=== PATIENT | male | born 1955 | race Caucasian/White ===

== ENCOUNTER 2021-05-03 13:10 | Emergency (ER) | payer MEDICARE, OTHER ==
[~2021-05-03] VITALS: Ht 177.8 cm; Wt 81.6 kg
[2021-05-03] MEDS ORDERED: NITROGLYCERIN 2% OINT 1 GM PKT TOP ONE (13:30)
[2021-05-03 13:44] LABS: BASOPHILS % 0.5 % (0.0-1.0); EOSINOPHILS # (AUTO) 0.2 (0.0-0.4); EOSINOPHILS % 2.5 % (0.0-6.0); HEMATOCRIT 38.7 % (38.2-49.6); HEMOGLOBIN 12.6 g/dL (14.0-18.0); LYMPHOCYTES # (AUTO) 1.4 (1.0-3.2); LYMPHOCYTES % 18.4 % (18.0-39.1); MEAN CORPUSCULAR HEMOGLOBIN 30.1 pg (28-32); MEAN CORPUSCULAR HGB CONC 32.6 g/dL (31-35); MEAN CORPUSCULAR VOLUME 92.6 fL (81-99); MONOCYTES # (AUTO) 0.5 (0.2-0.8); MONOCYTES % 7.2 % (4.4-11.3); NEUTROPHILS # (AUTO) 5.3 (2.1-6.9); NEUTROPHILS % 71.1 % (38.7-80.0); PLATELET COUNT 148 x10e3/uL (140-360); RED BLOOD COUNT 4.18 x10e6/uL (4.3-5.7); RED CELL DISTRIBUTION WIDTH 13.2 % (11.7-14.4)
[2021-05-03 14:05] LABS: INR 0.94; PARTIAL THROMBOPLASTIN TIME 29.7 seconds (23.8-35.5); PROTHROMBIN TIME 13.2 seconds (11.9-14.5)
[2021-05-03 14:07] LABS: ALBUMIN 3.6 g/dL (3.5-5.0); ANION GAP 15.1 mmol/L (8-16); CREATININE, SERUM 1.46 mg/dL (0.72-1.25); MAGNESIUM 1.9 MG/DL (1.3-2.1); POTASSIUM 4.1 mmol/L (3.5-5.1)
[2021-05-03 14:14] LABS: CREATINE KINASE MB 3.4 ng/mL (0-5.0)
[2021-05-03 15:07] LABS: CLARITY,URINE HAZY (CLEAR); COLOR,URINE YELLOW (YELLOW); KETONES,URINE NEGATIVE (NEGATIVE); LEUKOCYTE ESTERASE ,URINE NEGATIVE (NEGATIVE); NITRITE,URINE NEGATIVE (NEGATIVE); PROTEIN,URINE DIPSTICK 1+ (NEGATIVE); URINE UROBILINOGEN 0.2 mg/dL (0.2 - 1)
[2021-05-03 15:11] LABS: BACTERIA,URINE FEW /HPF; EPITHELIAL CELLS,URINE FEW /LPF; RBC,URINE 0-5 /HPF (0-5); WBC,URINE (MAN) 0-5 /HPF (0-5)
[2021-05-03] MEDS ORDERED: CLOPIDOGREL75 MG PO (16:22)
[2021-05-03] MEDS ORDERED: METFORMIN HCL500 M1 PO (16:22)
[2021-05-03] MEDS ORDERED: LEVOTHYROXINE88 MCG PO (16:22)
[2021-05-03] MEDS ORDERED: LISINOPRIL2.5 MG PO (16:22)
[2021-05-03] MEDS ORDERED: CARVEDILOL6.25 MG PO (16:22)
[2021-05-03] MEDS ORDERED: NOVOLOG100 UNIT/1 SC (16:22)
[2021-05-03] MEDS ORDERED: LANTUS 3ML100 UNITS/ SQ (16:22)
[2021-05-03] MEDS ORDERED: PANTOPRAZOLE SO40 MG PO (16:22)
[2021-05-03] MEDS ORDERED: INSULIN REGULAR, HUMAN 100 UNIT/1 ML IV ONE ×2 (16:30)
[2021-05-03] MEDS ORDERED: FUROSEMIDE INJ 10 MG/ML 4 ML VIAL IV ONE (17:15)
== END 2021-05-03 19:06 | disposition home or self-care (01) ==
LOC: ER 13:51
DX: I11.0 Hypertensive heart disease with heart failure (principal); I50.9 Heart failure, unspecified; E11.65 Type 2 diabetes mellitus with hyperglycemia; Z79.4 Long term (current) use of insulin; I25.10 Atherosclerotic heart disease of native coronary artery without angina pectoris; Z87.891 Personal history of nicotine dependence
CPT/HCPCS: 36415; 71045; 80053; 81001; 82550; 82553; 82948; 83735; 83880; 84484; 85025; 85610; 85730; 87086; 99284; J1817; J1940

== ENCOUNTER 2021-05-09 20:20 | Emergency (ER) | payer MEDICARE, OTHER ==
[~2021-05-09] VITALS: Ht 177.8 cm; Wt 88.0 kg
[~2021-05-09 20:20] MED LIST: CARVEDILOL6.25 MG PO; CLOPIDOGREL75 MG PO; LANTUS 3ML100 UNITS/ SQ; LEVOTHYROXINE88 MCG PO; LISINOPRIL2.5 MG PO; METFORMIN HCL500 M1 PO; NOVOLOG100 UNIT/1 SC; PANTOPRAZOLE SO40 MG PO
[2021-05-09] MEDS ORDERED: FAMOTIDINE 20 MG/2 ML VIAL IV STA (21:16)
[2021-05-09] MEDS ORDERED: MORPHINE SULFATE INJ 4 MG/ML INJ 1ML IV STA (21:16)
[2021-05-09] MEDS ORDERED: ONDANSETRON HCL INJ 2MG/ML 2ML 2 MG/ML VIAL IV STA (21:21)
[2021-05-09] MEDS ORDERED: SODIUM CHLORIDE 0.9% 500ML 500 ML IV ONE (21:30)
[2021-05-09] MEDS ORDERED: IOPAMIDOL 370 MG/ML 200 ML INFUS..BTL INJ ONE (21:36)
[2021-05-09] MEDS ORDERED: SODIUM CHLORIDE 0.9% 50ML 50 ML ONE (21:36)
[2021-05-09] MEDS ORDERED: SODIUM CHLORIDE 0.9% 500ML 500 ML ONE (21:38)
[2021-05-09] MEDS ORDERED: MORPHINE SULFATE INJ 4 MG/ML INJ 1ML ONE (21:38)
[2021-05-09] MEDS ORDERED: ONDANSETRON HCL INJ 2MG/ML 2ML 2 MG/ML VIAL ONE (21:38)
[2021-05-09] MEDS ORDERED: FAMOTIDINE 20 MG/2 ML VIAL IV ONE (21:38)
[2021-05-09 21:53] LABS: CREATINE KINASE MB 2.5 ng/mL (0-5.0)
[2021-05-10] MEDS ORDERED: DICYCLOMINE HCL 10 MG CAP ONE (00:21)
[2021-05-10] MEDS ORDERED: DICYCLOMINE HCL20 MG PO (00:24)
[2021-05-10] MEDS ORDERED: ONDANSETRON ODT4 MG PO (00:25)
[2021-05-10] MEDS ORDERED: CEPHALEXIN500 MG PO (00:26)
[2021-05-10] MEDS ORDERED: PROMETHAZINE HCL (IM) 25 MG/ML VIAL IM ONE (00:28)
[2021-05-10] MEDS ORDERED: PROMETHAZINE 12.5MG/ NACL 0.9% 12.5 MG/50 ML BAG IV ONE (00:30)
[2021-05-10] MEDS ORDERED: DICYCLOMINE HCL 10 MG CAP PO ONE (00:30)
== END 2021-05-10 00:54 | disposition home or self-care (01) ==
LOC: FSED 20:40
DX: R10.84 Generalized abdominal pain (principal); R31.29 Other microscopic hematuria; E11.621 Type 2 diabetes mellitus with foot ulcer; E11.65 Type 2 diabetes mellitus with hyperglycemia; L97.519 Non-pressure chronic ulcer of other part of right foot with unspecified severity; D64.9 Anemia, unspecified; I10 Essential (primary) hypertension; I50.9 Heart failure, unspecified; I25.10 Atherosclerotic heart disease of native coronary artery without angina pectoris; J90 Pleural effusion, not elsewhere classified; I73.9 Peripheral vascular disease, unspecified; Z95.5 Presence of coronary angioplasty implant and graft
CPT/HCPCS: 36415; 74177; 82550; 82553; 84484; 93005; 99284; J2270; J2405; J2550; J7040; Q9967

== ENCOUNTER 2021-10-22 20:57 | Emergency (ER) | payer MEDICARE, OTHER ==
[~2021-10-22] VITALS: Ht 177.8 cm; Wt 88.0 kg
[~2021-10-22 20:57] MED LIST changes: +CEPHALEXIN500 MG PO; +DICYCLOMINE HCL20 MG PO; +ONDANSETRON ODT4 MG PO
[2021-10-22] MEDS ORDERED: SILVER NITRATE SWABS ONE (21:57)
== END 2021-10-22 21:55 | disposition home or self-care (01) ==
LOC: FSED 21:05
DX: L76.22 Postprocedural hemorrhage of skin and subcutaneous tissue following other procedure (principal); Z79.02 Long term (current) use of antithrombotics/antiplatelets; S90.811A Abrasion, right foot, initial encounter; I73.9 Peripheral vascular disease, unspecified; Z89.431 Acquired absence of right foot; I11.0 Hypertensive heart disease with heart failure; I50.9 Heart failure, unspecified; E11.8 Type 2 diabetes mellitus with unspecified complications; I25.10 Atherosclerotic heart disease of native coronary artery without angina pectoris
CPT/HCPCS: 99283

== ENCOUNTER 2021-10-24 04:19 | Emergency (ER) | payer MEDICARE, OTHER ==
[~2021-10-24] VITALS: Ht 177.8 cm; Wt 88.0 kg
[2021-10-24] MEDS ORDERED: FENTANYL CITRATE/PF 100MCG/2 ML INJ IV ONE (04:45)
[2021-10-24] MEDS ORDERED: FUROSEMIDE INJ 10 MG/ML 4 ML VIAL IV ONE (04:45)
[2021-10-24 04:51] LABS: BASOPHILS # (AUTO) 0.1 (0.0-0.1); EOSINOPHILS # (AUTO) 0.3 (0.0-0.4); EOSINOPHILS % 4.5 % (0.0-6.0); HEMATOCRIT 38.8 % (38.2-49.6); HEMOGLOBIN 12.5 g/dL (14.0-18.0); LYMPHOCYTES # (AUTO) 1.8 (1.0-3.2); LYMPHOCYTES % 25.7 % (18.0-39.1); MEAN CORPUSCULAR HEMOGLOBIN 30.4 pg (28-32); MEAN CORPUSCULAR HGB CONC 32.2 g/dL (31-35); MEAN CORPUSCULAR VOLUME 94.4 fL (81-99); MONOCYTES # (AUTO) 0.5 (0.2-0.8); MONOCYTES % 7.4 % (4.4-11.3); NEUTROPHILS # (AUTO) 4.4 (2.1-6.9); NEUTROPHILS % 61.3 % (38.7-80.0); PLATELET COUNT 208 x10e3/uL (140-360); RED BLOOD COUNT 4.11 x10e6/uL (4.3-5.7); RED CELL DISTRIBUTION WIDTH 17.2 % (11.7-14.4)
[2021-10-24 05:02] LABS: INR 1.01; PROTHROMBIN TIME 14.1 seconds (11.9-14.5)
[2021-10-24 05:09] LABS: ALBUMIN 4.2 g/dL (3.5-5.0); ALBUMIN/GLOBULIN RATIO 1.1 (0.8-2.0); ANION GAP 16.5 mmol/L (8-16); CALCIUM 8.7 mg/dL (8.4-10.2); CREATININE, SERUM 1.5 mg/dL (0.72-1.25); POTASSIUM 3.5 mmol/L (3.5-5.1)
[2021-10-24 05:18] LABS: CLARITY,URINE CLOUDY (CLEAR); COLOR,URINE YELLOW (YELLOW); CREATINE KINASE MB 15.5 ng/mL (0-5.0); KETONES,URINE NEGATIVE (NEGATIVE); LEUKOCYTE ESTERASE ,URINE NEGATIVE (NEGATIVE); NITRITE,URINE NEGATIVE (NEGATIVE); PROTEIN,URINE DIPSTICK 2+ (NEGATIVE)
[2021-10-24 05:19] LABS: BACTERIA,URINE RARE /HPF; EPITHELIAL CELLS,URINE FEW /LPF; RBC,URINE 0-5 /HPF (0-5); URINE UROBILINOGEN 0.2 mg/dL (0.2 - 1); WBC,URINE (MAN) 21-50 /HPF (0-5)
[2021-10-24] MEDS ORDERED: SODIUM CHLORIDE 0.9% 50ML 50 ML ONE (05:36)
[2021-10-24] MEDS ORDERED: IOPAMIDOL 370 MG/ML 200 ML INFUS..BTL INJ ONE (05:36)
== END 2021-10-24 08:34 | disposition home or self-care (01) ==
LOC: ER 04:23
DX: R10.11 Right upper quadrant pain (principal); R10.13 Epigastric pain; I10 Essential (primary) hypertension; E11.9 Type 2 diabetes mellitus without complications; I50.9 Heart failure, unspecified; E03.9 Hypothyroidism, unspecified; I25.10 Atherosclerotic heart disease of native coronary artery without angina pectoris; I73.9 Peripheral vascular disease, unspecified; I25.2 Old myocardial infarction; Z95.5 Presence of coronary angioplasty implant and graft
CPT/HCPCS: 36415; 71045; 74177; 80053; 81001; 82550; 82553; 83690; 83880; 84484; 85025; 85610; 85730; 93005; 99284; J1940; J3010; Q9967

== ENCOUNTER 2022-02-25 14:49 | Outpatient (RCR) | payer MEDICARE, OTHER | END 2022-02-27 | LOC: WCC 14:49 | PROVIDERS: ATTEND Internal Medicine Infectious Disease | DX: L89.894 Pressure ulcer of other site, stage 4 (principal); E11.65 Type 2 diabetes mellitus with hyperglycemia; E11.621 Type 2 diabetes mellitus with foot ulcer; I21.3 ST elevation (STEMI) myocardial infarction of unspecified site; I73.9 Peripheral vascular disease, unspecified; I10 Essential (primary) hypertension; I25.10 Atherosclerotic heart disease of native coronary artery without angina pectoris; I50.9 Heart failure, unspecified; E03.9 Hypothyroidism, unspecified; R26.81 Unsteadiness on feet | CPT/HCPCS: 36415; 82948 ==

== ENCOUNTER 2022-03-03 15:50 | Outpatient (RCR) | payer MEDICARE, OTHER | END 2022-03-30 | LOC: WCC 15:50 | PROVIDERS: ATTEND Internal Medicine Infectious Disease | DX: L89.894 Pressure ulcer of other site, stage 4 (principal); E11.621 Type 2 diabetes mellitus with foot ulcer; E11.65 Type 2 diabetes mellitus with hyperglycemia; I73.9 Peripheral vascular disease, unspecified; I21.3 ST elevation (STEMI) myocardial infarction of unspecified site; I10 Essential (primary) hypertension; I25.10 Atherosclerotic heart disease of native coronary artery without angina pectoris; I50.9 Heart failure, unspecified; E03.9 Hypothyroidism, unspecified; R26.81 Unsteadiness on feet ==

== ENCOUNTER 2022-03-04 11:44 | Emergency (ER) | payer MEDICARE, OTHER ==
[~2022-03-04] VITALS: Ht 177.8 cm; Wt 88.0 kg
[2022-03-04] MEDS ORDERED: ONDANSETRON HCL INJ 2MG/ML 2ML 2 MG/ML VIAL IV STA (11:59)
[2022-03-04] MEDS ORDERED: SODIUM CHLORIDE 0.9% 500ML 500 ML IV ONE (12:00)
[2022-03-04 12:09] LABS: BASOPHILS # (AUTO) 0.1 (0.0-0.1); BASOPHILS % 0.7 % (0.0-1.0); EOSINOPHILS # (AUTO) 0.1 (0.0-0.4); HEMATOCRIT 30.2 % (38.2-49.6); HEMOGLOBIN 9.6 g/dL (14.0-18.0); MEAN CORPUSCULAR HEMOGLOBIN 28.1 pg (28-32); MEAN CORPUSCULAR HGB CONC 31.8 g/dL (31-35); MEAN CORPUSCULAR VOLUME 88.3 fL (81-99); MONOCYTES # (AUTO) 1.1 (0.2-0.8); MONOCYTES % 8.6 % (4.4-11.3); NEUTROPHILS # (AUTO) 10.1 (2.1-6.9); NEUTROPHILS % 81.2 % (38.7-80.0); PLATELET COUNT 293 x10e3/uL (140-360); RED BLOOD COUNT 3.42 x10e6/uL (4.3-5.7); RED CELL DISTRIBUTION WIDTH 13.2 % (11.7-14.4)
[2022-03-04 12:24] LABS: INR 1.21; PROTHROMBIN TIME 16.4 seconds (11.9-14.5)
[2022-03-04 12:25] LABS: PARTIAL THROMBOPLASTIN TIME 45.3 seconds (23.8-35.5)
[2022-03-04 12:38] LABS: CLARITY,URINE CLEAR (CLEAR); COLOR,URINE YELLOW (YELLOW); LEUKOCYTE ESTERASE ,URINE NEGATIVE (NEGATIVE)
[2022-03-04 12:38] LABS: ALBUMIN 2.9 g/dL (3.5-5.0); ALBUMIN/GLOBULIN RATIO 0.5 (0.8-2.0); ALKALINE PHOSPHATASE 100 IU/L (40-150); ANION GAP 16.8 mmol/L (8-16); BLOOD UREA NITROGEN 12 mg/dL (7-26); BUN/CREATININE RATIO 8 (6-25); CALCIUM 9.4 mg/dL (8.4-10.2); CARBON DIOXIDE 25 mmol/L (22-29); CHLORIDE 94 mmol/L (98-107); CREATINE KINASE 106 IU/L (30-200); CREATININE, SERUM 1.48 mg/dL (0.72-1.25); EST GLOMERULAR FILTRATION RATE 47 ML/MIN (60-); GLUCOSE 167 mg/dL (74-118); MAGNESIUM 1.7 MG/DL (1.3-2.1); POTASSIUM 3.8 mmol/L (3.5-5.1); SODIUM 132 mmol/L (136-145)
[2022-03-04 12:39] LABS: KETONES,URINE NEGATIVE (NEGATIVE); NITRITE,URINE NEGATIVE (NEGATIVE); PROTEIN,URINE DIPSTICK 2+ (NEGATIVE); URINE UROBILINOGEN 1 mg/dL (0.2 - 1)
[2022-03-04 12:39] LABS: ALANINE AMINOTRANSFERASE < 6 IU/L (0-55); LIPASE < 4 U/L (8-78)
[2022-03-04 12:42] LABS: BACTERIA,URINE MODERATE /HPF; EPITHELIAL CELLS,URINE FEW /LPF
[2022-03-04] MEDS ORDERED: IOPAMIDOL 370 MG/ML 100 ML INFUS..BTL INJ ONE (13:30)
[2022-03-04 14:20] VITALS: BP 130/88
== END 2022-03-04 14:48 | disposition home or self-care (01) ==
LOC: ER 11:50
DX: R10.13 Epigastric pain (principal); E11.65 Type 2 diabetes mellitus with hyperglycemia; I10 Essential (primary) hypertension; I25.10 Atherosclerotic heart disease of native coronary artery without angina pectoris; I50.9 Heart failure, unspecified; E03.9 Hypothyroidism, unspecified; I25.2 Old myocardial infarction; Z95.5 Presence of coronary angioplasty implant and graft
CPT/HCPCS: 36415; 74177; 80053; 81001; 82550; 82553; 83690; 83735; 84484; 85025; 85610; 85730; 87086; 93005; 99284; C9113; J2405; J7040; Q9967

== ENCOUNTER 2022-08-14 01:48 | Observation (INO) | payer MEDICARE, OTHER ==
[2022-08-14] VITALS (12 sets, daily range): BP systolic 125–156; BP diastolic 64–85
[~2022-08-14] VITALS: Ht 177.8 cm; Wt 87.1 kg
[2022-08-14] MEDS ORDERED: SODIUM CHLORIDE FLUSH 10 ML SYR IV PRN (02:00)
[2022-08-14] MEDS ORDERED: ASPIRIN 81 MG CHEW TAB PO ONE ×2 (02:00→04:30)
[2022-08-14 02:29] LABS: BASOPHILS # (AUTO) 0.1 (0.0-0.1); BASOPHILS % 0.8 % (0.0-1.0); EOSINOPHILS # (AUTO) 0.3 (0.0-0.4); HEMATOCRIT 35.2 % (38.2-49.6); HEMOGLOBIN 10.6 g/dL (14.0-18.0); LYMPHOCYTES # (AUTO) 1.4 (1.0-3.2); LYMPHOCYTES % 16.3 % (18.0-39.1); MEAN CORPUSCULAR HEMOGLOBIN 29.2 pg (28-32); MEAN CORPUSCULAR HGB CONC 30.1 g/dL (31-35); MONOCYTES # (AUTO) 0.6 (0.2-0.8); MONOCYTES % 6.8 % (4.4-11.3); NEUTROPHILS # (AUTO) 6.1 (2.1-6.9); PLATELET COUNT 185 x10e3/uL (140-360); RED BLOOD COUNT 3.63 x10e6/uL (4.3-5.7); RED CELL DISTRIBUTION WIDTH 13.2 % (11.7-14.4)
[2022-08-14] MEDS ORDERED: FUROSEMIDE INJ 10 MG/ML 4 ML VIAL IV ONE (02:30)
[2022-08-14 02:53] LABS: ALBUMIN 3.5 g/dL (3.5-5.0); ALBUMIN/GLOBULIN RATIO 0.9 (0.8-2.0); CALCIUM 9.5 mg/dL (8.4-10.2); CREATININE, SERUM 1.44 mg/dL (0.72-1.25)
[2022-08-14] MEDS ORDERED: SODIUM CHLORIDE FLUSH 10 ML SYR INJ PRN (04:30)
[2022-08-14] MEDS ORDERED: ONDANSETRON HCL INJ 2MG/ML 2ML 2 MG/ML VIAL IV PRN (04:30)
[2022-08-14] MEDS: ASPIRIN 81 MG ENTERIC COATED PO SCH (08:31)
[2022-08-14 09:40] LABS: CREATINE KINASE MB 3.8 ng/mL (0-5.0)
[2022-08-14] MEDS ORDERED: DEXTROSE 50% SYRINGE 50 ML IV PRN (13:15)
[2022-08-14] MEDS ORDERED: HYDRALAZINE HCL 20 MG/ML VIAL IV PRN (13:45)
[2022-08-14] MEDS ORDERED: ACETAMINOPHEN 325 MG TAB PO PRN (13:45)
[2022-08-14] MEDS ORDERED: KLOR-CON M2020 MEQ PO (15:54)
[2022-08-14] MEDS ORDERED: LEVOTHYROXINE112 MCG PO (15:54)
[2022-08-14] MEDS ORDERED: ENTRESTO 24 MG1 EACH PO (15:54)
[2022-08-14] MEDS ORDERED: NOVOLIN N100 UNIT/4 SUBD (15:54)
[2022-08-14] MEDS ORDERED: METOPROLOL SUCC25 MG PO (15:54)
[2022-08-14] MEDS ORDERED: GABAPENTIN300 MG PO (15:54)
[2022-08-14] MEDS ORDERED: QUETIAPINE FUMA25 MG PO (15:54)
[2022-08-14] MEDS ORDERED: TAMSULOSIN PO (15:54)
[2022-08-14] MEDS ORDERED: AMLODIPINE BESYL5 MG PO (15:54)
[2022-08-14] MEDS ORDERED: HYDRALAZINE HCL25 MG PO (15:54)
[2022-08-14] MEDS ORDERED: FUROSEMIDE40 MG PO (15:54)
[2022-08-14] MEDS ORDERED: QUETIAPINE FUMARATE 25 MG TAB PO SCH (17:15)
[2022-08-14 17:35] LABS: CREATINE KINASE MB 3.1 ng/mL (0-5.0)
[2022-08-14] MEDS: FUROSEMIDE INJ 10 MG/ML 4 ML VIAL IV SCH (17:57)
[2022-08-14] MEDS: CARVEDILOL 12.5 MG TAB PO SCH (17:58)
[2022-08-14] MEDS: GABAPENTIN 300 MG CAP PO SCH (17:59)
[2022-08-14] MEDS: INSULIN LISPRO 100 UNIT/1 ML 3ML VIAL SQ SCH (18:05)
[2022-08-14] MEDS: VALSARTAN/SACUBITRIL 24MG/26MG 1 EA TAB PO SCH (18:11)
[2022-08-14] MEDS ORDERED: TAMSULOSIN HCL 0.4 MG CAP PO SCH ×2 (21:00)
[2022-08-14] MEDS: HYDRALAZINE HCL 25 MG TAB PO SCH (21:23)
[2022-08-15] VITALS (8 sets, daily range): BP systolic 120–145; BP diastolic 64–79
[2022-08-15] MEDS ORDERED: LEVOTHYROXINE SODIUM 88 MCG TAB PO SCH (06:00)
[2022-08-15] MEDS ORDERED: LEVOTHYROXINE SODIUM 112 MCG TAB PO SCH (06:00)
[2022-08-15 06:14] LABS: BASOPHILS % 0.6 % (0.0-1.0); EOSINOPHILS # (AUTO) 0.3 (0.0-0.4); EOSINOPHILS % 3.8 % (0.0-6.0); HEMATOCRIT 31.7 % (38.2-49.6); HEMOGLOBIN 10.2 g/dL (14.0-18.0); LYMPHOCYTES # (AUTO) 1.4 (1.0-3.2); MEAN CORPUSCULAR HEMOGLOBIN 29.1 pg (28-32); MEAN CORPUSCULAR HGB CONC 32.2 g/dL (31-35); MEAN CORPUSCULAR VOLUME 90.6 fL (81-99); MONOCYTES # (AUTO) 0.5 (0.2-0.8); NEUTROPHILS # (AUTO) 4.4 (2.1-6.9); NEUTROPHILS % 66.3 % (38.7-80.0); PLATELET COUNT 176 x10e3/uL (140-360); RED CELL DISTRIBUTION WIDTH 13.4 % (11.7-14.4)
[2022-08-15 06:37] LABS: ALBUMIN/GLOBULIN RATIO 0.9 (0.8-2.0); ANION GAP 16.2 mmol/L (8-16); CALCIUM 8.7 mg/dL (8.4-10.2); CREATININE, SERUM 1.31 mg/dL (0.72-1.25); POTASSIUM 3.2 mmol/L (3.5-5.1)
[2022-08-15 06:45] LABS: CREATINE KINASE MB 2.2 ng/mL (0-5.0)
[2022-08-15] MEDS: GABAPENTIN 300 MG CAP PO SCH ×2 (08:37→15:46)
[2022-08-15] MEDS: HYDRALAZINE HCL 25 MG TAB PO SCH ×2 (08:37→14:30)
[2022-08-15] MEDS: VALSARTAN/SACUBITRIL 24MG/26MG 1 EA TAB PO SCH (08:42)
[2022-08-15] MEDS: CARVEDILOL 12.5 MG TAB PO SCH (08:42)
[2022-08-15] MEDS: ASPIRIN 81 MG ENTERIC COATED PO SCH (08:43)
[2022-08-15] MEDS: FUROSEMIDE INJ 10 MG/ML 4 ML VIAL IV SCH (08:43)
[2022-08-15] MEDS: INSULIN LISPRO 100 UNIT/1 ML 3ML VIAL SQ SCH ×2 (08:57→13:12)
[2022-08-15] MEDS ORDERED: PANTOPRAZOLE SOD 40 MG TABEC PO SCH (09:00)
[2022-08-15] MEDS ORDERED: LISINOPRIL 2.5 MG TAB PO SCH (09:00)
[2022-08-15] MEDS ORDERED: CLOPIDOGREL BISULFATE 75 MG TAB PO SCH (09:00)
[2022-08-15] MEDS ORDERED: POTASSIUM CHLORIDE 10MEQ EA PO NR (14:00)
[2022-08-15 15:15] LABS: CREATINE KINASE MB 2.5 ng/mL (0-5.0)
== END 2022-08-15 16:20 | disposition home or self-care (01) ==
LOC: ER 01:55 → ERHOLD 04:23 → MED/SURG2 05:53
PROVIDERS: ADMIT Internal Medicine; ATTEND Internal Medicine
DX: I11.0 Hypertensive heart disease with heart failure (principal); I50.9 Heart failure, unspecified; N17.9 Acute kidney failure, unspecified; E78.5 Hyperlipidemia, unspecified; I25.10 Atherosclerotic heart disease of native coronary artery without angina pectoris; I25.2 Old myocardial infarction; R09.02 Hypoxemia; E11.9 Type 2 diabetes mellitus without complications; E89.0 Postprocedural hypothyroidism; Z82.49 Family history of ischemic heart disease and other diseases of the circulatory system; Z79.4 Long term (current) use of insulin; Z88.8 Allergy status to other drugs, medicaments and biological substances; Z95.5 Presence of coronary angioplasty implant and graft; Z95.820 Peripheral vascular angioplasty status with implants and grafts; Z89.411 Acquired absence of right great toe; Z20.822 Contact with and (suspected) exposure to COVID-19
CPT/HCPCS: 36415 ×2; 71045 ×2; 80053 ×2; 82550 ×2; 82553 ×2; 82948 ×2; 83880; 84484 ×2; 85025 ×2; 93005; 93306; 94799 ×2; 99284; G0378 ×2; J1940 ×2; S0164; U0002; J0360; J2405

== ENCOUNTER 2022-12-05 09:13 | Emergency (ER) | payer MEDICARE ==
[~2022-12-05] VITALS: Ht 177.8 cm; Wt 87.1 kg
[~2022-12-05 09:13] MED LIST changes: +AMLODIPINE BESYL5 MG PO; +CEFDINIR300 MG PO; +ENTRESTO 24 MG1 EACH PO; +FUROSEMIDE40 MG PO; +GABAPENTIN300 MG PO; +HYDRALAZINE HCL25 MG PO; +KLOR-CON M2020 MEQ PO; +LEVOTHYROXINE112 MCG PO; +METOPROLOL SUCC25 MG PO; +NOVOLIN N100 UNIT/4 SUBD; +QUETIAPINE FUMA25 MG PO; +TAMSULOSIN PO
[2022-12-05] MEDS ORDERED: ONDANSETRON HCL INJ 2MG/ML 2ML 2 MG/ML VIAL IV STA (09:32)
[2022-12-05] MEDS ORDERED: SODIUM CHLORIDE 0.9% 1000ML 1,000 ML IV ONE (09:45)
[2022-12-05] MEDS ORDERED: Morphine 4mg INJECTION 4 MG/ML INJ IV ONE (09:45)
[2022-12-05 10:10] LABS: BASOPHILS % 0.6 % (0.0-1.0); EOSINOPHILS # (AUTO) 0.2 (0.0-0.4); EOSINOPHILS % 3.7 % (0.0-6.0); HEMATOCRIT 37.5 % (38.2-49.6); HEMOGLOBIN 11.1 g/dL (14.0-18.0); LYMPHOCYTES % 15.7 % (18.0-39.1); MEAN CORPUSCULAR HEMOGLOBIN 28.9 pg (28-32); MEAN CORPUSCULAR HGB CONC 29.6 g/dL (31-35); MEAN CORPUSCULAR VOLUME 97.7 fL (81-99); MONOCYTES # (AUTO) 0.4 (0.2-0.8); MONOCYTES % 6.4 % (4.4-11.3); NEUTROPHILS # (AUTO) 4.8 (2.1-6.9); NEUTROPHILS % 73.4 % (38.7-80.0); PLATELET COUNT 124 x10e3/uL (140-360); RED BLOOD COUNT 3.84 x10e6/uL (4.3-5.7); RED CELL DISTRIBUTION WIDTH 13.9 % (11.7-14.4)
[2022-12-05 10:19] LABS: CLARITY,URINE CLEAR (CLEAR); COLOR,URINE YELLOW (YELLOW); KETONES,URINE TRACE (NEGATIVE); LEUKOCYTE ESTERASE ,URINE NEGATIVE (NEGATIVE); NITRITE,URINE NEGATIVE (NEGATIVE); PROTEIN,URINE DIPSTICK >=300 (NEGATIVE); URINE UROBILINOGEN 0.2 mg/dL (0.2 - 1)
[2022-12-05 10:25] LABS: BACTERIA,URINE FEW /HPF; WBC,URINE (MAN) 0-5 /HPF (0-5)
[2022-12-05 10:26] LABS: EPITHELIAL CELLS,URINE FEW /LPF
[2022-12-05 10:30] LABS: ALBUMIN 3.8 g/dL (3.5-5.0); ALBUMIN/GLOBULIN RATIO 1.1 (0.8-2.0); ANION GAP 16.2 mmol/L (8-16); CREATININE, SERUM 1.53 mg/dL (0.72-1.25); POTASSIUM 4.2 mmol/L (3.5-5.1)
[2022-12-05] MEDS ORDERED: IOPAMIDOL 370 MG/ML 100 ML INFUS..BTL INJ ONE (11:00)
[2022-12-05] MEDS ORDERED: DICYCLOMINE HCL20 MG PO (12:57)
== END 2022-12-05 13:25 | disposition home or self-care (01) ==
LOC: ER 09:20
DX: R19.7 Diarrhea, unspecified (principal); R11.2 Nausea with vomiting, unspecified; E11.65 Type 2 diabetes mellitus with hyperglycemia; I10 Essential (primary) hypertension; I50.9 Heart failure, unspecified; I73.9 Peripheral vascular disease, unspecified; Z20.822 Contact with and (suspected) exposure to COVID-19
CPT/HCPCS: 36415; 74177; 80053; 81001; 83690; 85025; 99284; J2270; J2405; J7030; Q9967; U0002

== ENCOUNTER 2022-12-11 18:18 | Emergency (ER) | payer MEDICARE, OTHER ==
[~2022-12-11] VITALS: Ht 177.8 cm; Wt 87.1 kg
[2022-12-11] MEDS ORDERED: AMOX TR-K CLV1 EAC2 PO (20:19)
== END 2022-12-11 20:24 | disposition home or self-care (01) ==
LOC: ER 18:20
DX: S90.811A Abrasion, right foot, initial encounter (principal); W55.03XA Scratched by cat, initial encounter; Y92.89 Other specified places as the place of occurrence of the external cause; I10 Essential (primary) hypertension; E11.9 Type 2 diabetes mellitus without complications; I50.9 Heart failure, unspecified; I73.9 Peripheral vascular disease, unspecified
CPT/HCPCS: 99282

== ENCOUNTER 2023-01-04 09:43 | Emergency (ER) | payer MEDICARE ==
[~2023-01-04] VITALS: Ht 177.8 cm; Wt 87.1 kg
[~2023-01-04 09:43] MED LIST changes: +AMOX TR-K CLV1 EAC2 PO
[2023-01-04 10:10] LABS: BASOPHILS # (AUTO) 0.1 (0.0-0.1); BASOPHILS % 0.8 % (0.0-1.0); EOSINOPHILS # (AUTO) 0.1 (0.0-0.4); EOSINOPHILS % 2.2 % (0.0-6.0); HEMOGLOBIN 10.9 g/dL (14.0-18.0); LYMPHOCYTES # (AUTO) 0.8 (1.0-3.2); LYMPHOCYTES % 12.8 % (18.0-39.1); MEAN CORPUSCULAR HEMOGLOBIN 28.8 pg (28-32); MEAN CORPUSCULAR HGB CONC 31.1 g/dL (31-35); MEAN CORPUSCULAR VOLUME 92.6 fL (81-99); MONOCYTES # (AUTO) 0.3 (0.2-0.8); MONOCYTES % 5.1 % (4.4-11.3); NEUTROPHILS # (AUTO) 5.1 (2.1-6.9); NEUTROPHILS % 78.9 % (38.7-80.0); PLATELET COUNT 126 x10e3/uL (140-360); RED BLOOD COUNT 3.78 x10e6/uL (4.3-5.7); RED CELL DISTRIBUTION WIDTH 14.9 % (11.7-14.4)
[2023-01-04] MEDS ORDERED: ONDANSETRON HCL INJ 2MG/ML 2ML 2 MG/ML VIAL IV STA (10:15)
[2023-01-04] MEDS ORDERED: DONNATAL/LIDOCAINE/MAALOX 30 ML SUSP PO ONE (10:15)
[2023-01-04] MEDS ORDERED: LACTATED RINGER'S 1,000 ML INJ ONE (10:15)
[2023-01-04 10:26] LABS: ALBUMIN 4.1 g/dL (3.5-5.0); ALBUMIN/GLOBULIN RATIO 1.2 (0.8-2.0); ANION GAP 15.6 mmol/L (8-16); CALCIUM 9.3 mg/dL (8.4-10.2); CREATININE, SERUM 1.64 mg/dL (0.72-1.25); POTASSIUM 3.6 mmol/L (3.5-5.1)
[2023-01-04 11:00] LABS: AMPHETAMINES SCREEN,URINE NEGATIVE (NEGATIVE); BENZODIAZEPINES SCREEN,URINE NEGATIVE (NEGATIVE); CLARITY,URINE CLEAR (CLEAR); COLOR,URINE YELLOW (YELLOW); KETONES,URINE NEGATIVE (NEGATIVE); LEUKOCYTE ESTERASE ,URINE NEGATIVE (NEGATIVE); NITRITE,URINE NEGATIVE (NEGATIVE); PHENCYCLIDINE SCREEN,URINE NEGATIVE (NEGATIVE); PROTEIN,URINE DIPSTICK >=300 (NEGATIVE); URINE UROBILINOGEN 0.2 mg/dL (0.2 - 1)
[2023-01-04] MEDS ORDERED: BELLADONNA ALK/PHENOBARBITAL 5 ML UDC ONE (11:01)
[2023-01-04] MEDS ORDERED: LIDOCAINE VISC 2% SOLN 15 ML UDC ONE (11:01)
[2023-01-04] MEDS ORDERED: MAGNESIUM/ALUMINUM/SIMETHICONE 30 ML UDC ONE (11:01)
[2023-01-04 11:06] LABS: RBC,URINE 21-50 /HPF (0-5); WBC,URINE (MAN) 0-5 /HPF (0-5)
[2023-01-04 11:07] LABS: BACTERIA,URINE RARE /HPF; EPITHELIAL CELLS,URINE RARE /LPF
[2023-01-04] MEDS ORDERED: OMEPRAZOLE40 MG PO (11:37)
[2023-01-04 12:56] VITALS: BP 167/93
== END 2023-01-04 12:59 | disposition home or self-care (01) ==
LOC: ER 09:47
DX: R10.33 Periumbilical pain (principal); I10 Essential (primary) hypertension; E11.65 Type 2 diabetes mellitus with hyperglycemia; I50.9 Heart failure, unspecified; I73.9 Peripheral vascular disease, unspecified
CPT/HCPCS: 36415; 74177; 80053; 80307; 81001; 83690; 84484; 85025; 93005; 99284; C9113; J2405; J7121

== ENCOUNTER 2024-02-26 00:58 | Emergency (ER) | payer MEDICARE ==
[~2024-02-26] VITALS: Ht 177.8 cm; Wt 87.1 kg
[~2024-02-26 00:58] MED LIST changes: +AZITHROMYCIN250 MG PO; +OMEPRAZOLE40 MG PO
[2024-02-26] MEDS ORDERED: SODIUM CHLORIDE 0.9% 1000ML 1,000 ML IV ONE (01:45)
[2024-02-26] MEDS: ONDANSETRON HCL INJ 2MG/ML 2ML 2 MG/ML VIAL IV STA (01:46)
[2024-02-26] MEDS: DICYCLOMINE HCL 20 MG/2 ML VIAL IM ONE (01:46)
[2024-02-26 01:50] LABS: BASOPHILS # (AUTO) 0.1 (0.0-0.1); BASOPHILS % 0.7 % (0.0-1.0); EOSINOPHILS # (AUTO) 0.2 (0.0-0.4); EOSINOPHILS % 2.4 % (0.0-6.0); HEMATOCRIT 40.7 % (38.2-49.6); HEMOGLOBIN 13.4 g/dL (14.0-18.0); LYMPHOCYTES # (AUTO) 1.1 (1.0-3.2); LYMPHOCYTES % 14.1 % (18.0-39.1); MEAN CORPUSCULAR HGB CONC 32.9 g/dL (31-35); MEAN CORPUSCULAR VOLUME 88.1 fL (81-99); MONOCYTES # (AUTO) 0.4 (0.2-0.8); MONOCYTES % 5.4 % (4.4-11.3); NEUTROPHILS # (AUTO) 5.9 (2.1-6.9); NEUTROPHILS % 77.3 % (38.7-80.0); PLATELET COUNT 150 x10e3/uL (140-360); RED BLOOD COUNT 4.62 x10e6/uL (4.3-5.7); RED CELL DISTRIBUTION WIDTH 14.2 % (11.7-14.4); WHITE BLOOD COUNT 7.59 x10e3/uL (4.8-10.8)
[2024-02-26 02:11] LABS: ALBUMIN/GLOBULIN RATIO 1.1 (0.8-2.0); ANION GAP 16.6 mmol/L (8-16); BILIRUBIN,TOTAL 0.8 mg/dL (0.2-1.2); CALCIUM 9.1 mg/dL (8.4-10.2); CREATININE, SERUM 1.82 mg/dL (0.72-1.25); POTASSIUM 3.6 mmol/L (3.5-5.1); TOTAL PROTEIN 7.8 g/dL (6.5-8.1)
[2024-02-26 02:31] LABS: TROPONIN I 0.019 ng/mL (0-0.300)
[2024-02-26 02:55] VITALS: BP 165/90; PULSE 63; RESP 21; TEMP 98.2; O2SAT 96
[2024-02-26] MEDS ORDERED: DICYCLOMINE HCL20 MG PO (03:02)
[2024-02-26] MEDS ORDERED: ONDANSETRON ODT4 MG SL (03:02)
[2024-02-26] MEDS ORDERED: PANTOPRAZOLE SO40 MG PO (03:02)
== END 2024-02-26 03:14 | disposition home or self-care (01) ==
LOC: ER 01:03
DX: R10.13 Epigastric pain (principal); R11.0 Nausea; I10 Essential (primary) hypertension; E11.9 Type 2 diabetes mellitus without complications; I50.9 Heart failure, unspecified; I25.10 Atherosclerotic heart disease of native coronary artery without angina pectoris; E78.5 Hyperlipidemia, unspecified; I73.9 Peripheral vascular disease, unspecified; R94.31 Abnormal electrocardiogram [ECG] [EKG]; I25.2 Old myocardial infarction
CPT/HCPCS: 36415; 80053; 83690; 84484; 85025; 93005; 99283; C9113; J0500; J2405

== ENCOUNTER → 2024-04-05 | Day surgery (SDC) | payer MEDICARE ==
[~2024-04-05] MED LIST changes: +ASPIRIN81 MG PO; +FENTANYL CITRATE/PF 100MCG/2 ML INJ ONE; +FEROSUL325 MG PO; +FIBER GUMMIES2 GM; +FLOMAX0.4 MG PO; +FOLIC ACID0.4 MG PO; +ISOSORBIDE MONO30 MG PO; +LEVSIN-SL0.125 MG SL; +LIDOCAINE HCL 2% LOCAL INJ 5 ML SDV VIAL INJ ONE; +LISINOPRIL10 MG PO; +ONDANSETRON ODT4 MG SL; +PROPOFOL IV EMULSION 10 MG/ML 50 ML VIAL IV ONE; +SYNTHROID125 MCG PO; +TOUJEO MAX300 UNIT/1; +ZETIA10 MG PO; +[UNRECOGNIZED DRUG - OTHER] PO
[2024-04-05] MEDS: LACTATED RINGER'S 1,000 ML ONE (13:22)
[2024-04-05 15:13] VITALS: TEMP 97.1
[2024-04-05 15:40] VITALS: BP 156/52; PULSE 66; RESP 16; O2SAT 99
== END | disposition home or self-care (01) ==
LOC: OR 13:13
PROVIDERS: ATTEND Internal Medicine Gastroenterology
DX: K29.50 Unspecified chronic gastritis without bleeding (principal); Z86.010 Personal history of colon polyps; K21.00 Gastro-esophageal reflux disease with esophagitis, without bleeding; K22.70 Barrett's esophagus without dysplasia; K59.00 Constipation, unspecified; K44.9 Diaphragmatic hernia without obstruction or gangrene; K64.8 Other hemorrhoids; Z71.3 Dietary counseling and surveillance; I25.10 Atherosclerotic heart disease of native coronary artery without angina pectoris; I11.0 Hypertensive heart disease with heart failure; I50.9 Heart failure, unspecified; Z71.89 Other specified counseling; E78.5 Hyperlipidemia, unspecified; I25.2 Old myocardial infarction; E11.9 Type 2 diabetes mellitus without complications; E03.9 Hypothyroidism, unspecified; F17.210 Nicotine dependence, cigarettes, uncomplicated; Z88.8 Allergy status to other drugs, medicaments and biological substances; Z79.02 Long term (current) use of antithrombotics/antiplatelets; Z79.82 Long term (current) use of aspirin; Z79.4 Long term (current) use of insulin; Z79.899 Other long term (current) drug therapy; Z68.28 Body mass index [BMI] 28.0-28.9, adult; Z95.5 Presence of coronary angioplasty implant and graft
CPT/HCPCS: 36415; 43239; 45378; 82948; C9113; J2001; J2704; J3010; J7121

== ENCOUNTER 2024-05-20 07:04 | Emergency (ER) | payer MEDICARE ==
[~2024-05-20] VITALS: Ht 177.8 cm; Wt 84.8 kg
[~2024-05-20 07:04] MED LIST changes: -FENTANYL CITRATE/PF 100MCG/2 ML INJ ONE; -LEVSIN-SL0.125 MG SL; -LIDOCAINE HCL 2% LOCAL INJ 5 ML SDV VIAL INJ ONE; -PROPOFOL IV EMULSION 10 MG/ML 50 ML VIAL IV ONE
[2024-05-20 07:11] VITALS: TEMP 97.6
[2024-05-20 08:01] LABS: BASOPHILS # (AUTO) 0.1 (0.0-0.1); BASOPHILS % 0.6 % (0.0-1.0); EOSINOPHILS # (AUTO) 0.4 (0.0-0.4); EOSINOPHILS % 4.3 % (0.0-6.0); HEMATOCRIT 42.5 % (38.2-49.6); HEMOGLOBIN 13.8 g/dL (14.0-18.0); LYMPHOCYTES # (AUTO) 1.2 (1.0-3.2); MEAN CORPUSCULAR HEMOGLOBIN 30.2 pg (28-32); MEAN CORPUSCULAR HGB CONC 32.5 g/dL (31-35); MONOCYTES # (AUTO) 0.7 (0.2-0.8); MONOCYTES % 6.9 % (4.4-11.3); PLATELET COUNT 153 x10e3/uL (140-360); RED BLOOD COUNT 4.57 x10e6/uL (4.3-5.7); RED CELL DISTRIBUTION WIDTH 13.2 % (11.7-14.4); WHITE BLOOD COUNT 9.36 x10e3/uL (4.8-10.8)
[2024-05-20 08:03] LABS: INR 0.97; PROTHROMBIN TIME 13.6 seconds (11.9-14.5)
[2024-05-20 08:04] LABS: PARTIAL THROMBOPLASTIN TIME 31.9 seconds (23.8-35.5)
[2024-05-20 08:12] LABS: ALBUMIN 4.3 g/dL (3.5-5.0); ALBUMIN/GLOBULIN RATIO 1.1 (0.8-2.0); BILIRUBIN,TOTAL 1.2 mg/dL (0.2-1.2); CALCIUM 9.6 mg/dL (8.4-10.2); CREATININE, SERUM 1.85 mg/dL (0.72-1.25); POTASSIUM 3.9 mmol/L (3.5-5.1); TOTAL PROTEIN 8.2 g/dL (6.5-8.1)
[2024-05-20] MEDS: Morphine 4mg INJECTION 4 MG/ML INJ IV STA (08:15)
[2024-05-20] MEDS: ONDANSETRON HCL INJ 2MG/ML 2ML 2 MG/ML VIAL IV STA (08:16)
[2024-05-20] MEDS: SODIUM CHLORIDE 0.9% 1000ML 1,000 ML IV STA (08:16)
[2024-05-20 08:17] VITALS: BP 177/101
[2024-05-20 08:17] LABS: TROPONIN I 0.024 ng/mL (0-0.300)
[2024-05-20] MEDS: HYDRALAZINE HCL 20 MG/ML VIAL IV STA (08:17)
[2024-05-20] MEDS ORDERED: IOPAMIDOL 370 MG/ML 100 ML INFUS..BTL INJ ONE (08:25)
[2024-05-20 08:30] LABS: ANION GAP 17.7 mmol/L (8-16)
[2024-05-20 11:00] VITALS: PULSE 79; RESP 16; O2SAT 97
[2024-05-20] MEDS ORDERED: ONDANSETRON ODT4 MG PO (11:11)
[2024-05-20] MEDS ORDERED: LEVSIN-SL0.125 MG SL (11:11)
== END 2024-05-20 11:50 | disposition home or self-care (01) ==
LOC: ER 07:25
DX: R10.10 Upper abdominal pain, unspecified (principal); I10 Essential (primary) hypertension; E11.9 Type 2 diabetes mellitus without complications; E78.5 Hyperlipidemia, unspecified; I50.9 Heart failure, unspecified; E03.9 Hypothyroidism, unspecified; I25.10 Atherosclerotic heart disease of native coronary artery without angina pectoris; R94.31 Abnormal electrocardiogram [ECG] [EKG]; Z11.52 Encounter for screening for COVID-19; I25.2 Old myocardial infarction
CPT/HCPCS: 36415; 71045; 74177; 76705; 80053; 82550; 83690; 83735; 83880; 84484; 85025; 85610; 85730; 93005; 99284; J0360; J2270; J2405; J2470; J7030; Q9967; U0002

== ENCOUNTER 2024-06-12 16:10 | Emergency (ER) | payer MEDICARE ==
[~2024-06-12] VITALS: Ht 177.8 cm; Wt 84.8 kg
[~2024-06-12 16:10] MED LIST changes: +LEVSIN-SL0.125 MG SL
[2024-06-12 16:36] VITALS: PULSE 74; RESP 17; TEMP 99.1; O2SAT 98
[2024-06-12] MEDS ORDERED: LEVOFLOXACIN250 MG PO (16:47)
[2024-06-12] MEDS ORDERED: CLINDAMYCIN HC150 MG PO (16:47)
== END 2024-06-12 16:57 | disposition home or self-care (01) ==
LOC: ER 16:28
DX: R50.9 Fever, unspecified (principal); L03.115 Cellulitis of right lower limb; I10 Essential (primary) hypertension; E11.9 Type 2 diabetes mellitus without complications; I50.9 Heart failure, unspecified; E78.5 Hyperlipidemia, unspecified; E03.9 Hypothyroidism, unspecified; I25.2 Old myocardial infarction
CPT/HCPCS: 99282

== ENCOUNTER 2024-06-18 15:05 | Inpatient (IN) | payer MEDICARE ==
[~2024-06-18] VITALS: Ht 177.8 cm; Wt 84.8 kg
[~2024-06-18 15:05] MED LIST changes: +CLINDAMYCIN HC150 MG PO; +LEVOFLOXACIN250 MG PO
[2024-06-18 15:42] LABS: BASOPHILS # (AUTO) 0.1 (0.0-0.1); BASOPHILS % 0.8 % (0.0-1.0); EOSINOPHILS # (AUTO) 0.3 (0.0-0.4); EOSINOPHILS % 4.2 % (0.0-6.0); HEMATOCRIT 38.6 % (38.2-49.6); HEMOGLOBIN 12.4 g/dL (14.0-18.0); LYMPHOCYTES # (AUTO) 0.9 (1.0-3.2); LYMPHOCYTES % 13.1 % (18.0-39.1); MEAN CORPUSCULAR HEMOGLOBIN 30.1 pg (28-32); MEAN CORPUSCULAR HGB CONC 32.1 g/dL (31-35); MEAN CORPUSCULAR VOLUME 93.7 fL (81-99); MONOCYTES # (AUTO) 0.4 (0.2-0.8); MONOCYTES % 5.8 % (4.4-11.3); NEUTROPHILS # (AUTO) 5.5 (2.1-6.9); NEUTROPHILS % 75.8 % (38.7-80.0); PLATELET COUNT 175 x10e3/uL (140-360); RED BLOOD COUNT 4.12 x10e6/uL (4.3-5.7); RED CELL DISTRIBUTION WIDTH 12.5 % (11.7-14.4); WHITE BLOOD COUNT 7.19 x10e3/uL (4.8-10.8)
[2024-06-18] MEDS: Vancomycin IV 1 GM in SODIUM CHLORIDE 0.9% 250ML 250 ML IV ONE (15:50)
[2024-06-18] MEDS: SODIUM CHLORIDE 0.9% 1000ML 1,000 ML IV STA (15:50)
[2024-06-18 15:51] LABS: INR 1.07; PROTHROMBIN TIME 14.4 seconds (11.9-14.5)
[2024-06-18 15:52] LABS: PARTIAL THROMBOPLASTIN TIME 38.8 seconds (23.8-35.5)
[2024-06-18 16:00] LABS: ALANINE AMINOTRANSFERASE 6 IU/L (0-55); ALBUMIN 3.5 g/dL (3.5-5.0); ALBUMIN/GLOBULIN RATIO 0.9 (0.8-2.0); ALKALINE PHOSPHATASE 117 IU/L (40-150); BILIRUBIN,TOTAL 0.9 mg/dL (0.2-1.2); BLOOD UREA NITROGEN 22 mg/dL (7-26); BUN/CREATININE RATIO 12 (6-25); CARBON DIOXIDE 26 mmol/L (22-29); CHLORIDE 103 mmol/L (98-107); EST GLOMERULAR FILTRATION RATE 40 ML/MIN (>=60); GLUCOSE 119 mg/dL (74-118); MAGNESIUM 1.9 MG/DL (1.3-2.1); SODIUM 141 mmol/L (136-145); TOTAL PROTEIN 7.5 g/dL (6.5-8.1)
[2024-06-18 16:11] LABS: TROPONIN I < 0.05 ng/mL (0.0-0.40)
[2024-06-18 17:55] VITALS: TEMP 98.6
[2024-06-18] MEDS ORDERED: HYDRALAZINE HCL 20 MG/ML VIAL IV PRN (18:45)
[2024-06-18] MEDS: HYDRALAZINE HCL 20 MG/ML VIAL IV STA (18:59)
[2024-06-18 19:04] VITALS: PULSE 70; RESP 16
[2024-06-18] MEDS ORDERED: DEXTROSE 50% SYRINGE 50 ML IV PRN (19:15)
[2024-06-18] MEDS ORDERED: ACETAMINOPHEN 325 MG TAB PO PRN (19:15)
[2024-06-18] MEDS: HYDRALAZINE HCL 25 MG TAB PO SCH (21:00)
[2024-06-18] MEDS: SODIUM CHLORIDE 0.9% 1000ML 1,000 ML IV SCH (21:57)
[2024-06-18] MEDS: INSULIN LISPRO 100 UNIT/1 ML 3ML VIAL SQ SCH (22:05)
[2024-06-18 23:16] VITALS: BP 158/79; PULSE 71; RESP 17; TEMP 98.2; O2SAT 99
[2024-06-18 23:37] VITALS: BP 158/79; PULSE 71; RESP 17; TEMP 98.2; O2SAT 99
[2024-06-18 23:38] VITALS: BP 158/79; PULSE 71; RESP 17; TEMP 98.2; O2SAT 99
[2024-06-19 04:00] VITALS: BP 168/81; PULSE 65; RESP 18; TEMP 98.8; O2SAT 99
[2024-06-19 05:31] LABS: BASOPHILS # (AUTO) 0.1 (0.0-0.1); BASOPHILS % 0.9 % (0.0-1.0); EOSINOPHILS # (AUTO) 0.4 (0.0-0.4); EOSINOPHILS % 4.9 % (0.0-6.0); HEMATOCRIT 33.2 % (38.2-49.6); HEMOGLOBIN 10.6 g/dL (14.0-18.0); LYMPHOCYTES # (AUTO) 1.1 (1.0-3.2); LYMPHOCYTES % 14.3 % (18.0-39.1); MEAN CORPUSCULAR HGB CONC 31.9 g/dL (31-35); MEAN CORPUSCULAR VOLUME 94.1 fL (81-99); MONOCYTES # (AUTO) 0.6 (0.2-0.8); MONOCYTES % 7.4 % (4.4-11.3); NEUTROPHILS # (AUTO) 5.4 (2.1-6.9); NEUTROPHILS % 72.4 % (38.7-80.0); PLATELET COUNT 152 x10e3/uL (140-360); RED BLOOD COUNT 3.53 x10e6/uL (4.3-5.7); RED CELL DISTRIBUTION WIDTH 12.6 % (11.7-14.4); WHITE BLOOD COUNT 7.53 x10e3/uL (4.8-10.8)
[2024-06-19] MEDS: LEVOTHYROXINE SODIUM 125 MCG TAB PO SCH (05:55)
[2024-06-19 06:02] LABS: ALBUMIN 2.9 g/dL (3.5-5.0); ALBUMIN/GLOBULIN RATIO 0.9 (0.8-2.0); ALKALINE PHOSPHATASE 93 IU/L (40-150); ANION GAP 12.6 mmol/L (8-16); BILIRUBIN,TOTAL 0.7 mg/dL (0.2-1.2); BLOOD UREA NITROGEN 19 mg/dL (7-26); BUN/CREATININE RATIO 11 (6-25); CALCIUM 8.4 mg/dL (8.4-10.2); CARBON DIOXIDE 25 mmol/L (22-29); CHLORIDE 109 mmol/L (98-107); CREATININE, SERUM 1.69 mg/dL (0.72-1.25); EST GLOMERULAR FILTRATION RATE 43 ML/MIN (>=60); GLUCOSE 82 mg/dL (74-118); POTASSIUM 3.6 mmol/L (3.5-5.1); SODIUM 143 mmol/L (136-145); TOTAL PROTEIN 6.1 g/dL (6.5-8.1)
[2024-06-19 06:03] LABS: ALANINE AMINOTRANSFERASE < 6 IU/L (0-55)
[2024-06-19 06:41] LABS: CREATINE KINASE 58 IU/L (30-200)
[2024-06-19 08:02] VITALS: BP 158/80; PULSE 62; RESP 19; TEMP 98.6; O2SAT 98
[2024-06-19] MEDS: TAMSULOSIN HCL 0.4 MG CAP PO SCH (09:00)
[2024-06-19] MEDS ORDERED: NON-FORMULARY MEDICATION (Folic Acid* 0.4 MG) PO SCH (09:00)
[2024-06-19] MEDS: GABAPENTIN 100 MG CAP PO SCH (10:41)
[2024-06-19] MEDS: FUROSEMIDE 20 MG TAB PO SCH (10:42)
[2024-06-19] MEDS: FERROUS SULFATE 325 MG TAB PO SCH (10:42)
[2024-06-19] MEDS: EZETIMIBE 10 MG TAB PO SCH (10:42)
[2024-06-19] MEDS: PANTOPRAZOLE SOD 40 MG TABEC PO SCH (10:43)
[2024-06-19] MEDS: CLOPIDOGREL BISULFATE 75 MG TAB PO SCH (10:43)
[2024-06-19] MEDS: LISINOPRIL 10 MG TAB PO SCH (10:44)
[2024-06-19] MEDS: ASPIRIN 81 MG CHEW TAB PO SCH (10:44)
[2024-06-19 11:24] VITALS: BP 167/82; PULSE 71; RESP 19; TEMP 97.5; O2SAT 98
[2024-06-19 11:37] LABS: TROPONIN I < 0.05 ng/mL (0.0-0.40)
[2024-06-19 12:38] LABS: TROPONIN I 0.041 ng/mL (0-0.300)
[2024-06-19] MEDS: FOLIC ACID 1 MG TAB PO SCH (15:16)
[2024-06-19 16:01] VITALS: BP 153/80; PULSE 63; RESP 17; TEMP 98.3; O2SAT 99
[2024-06-19] MEDS: ISOSORBIDE MONONITRATE 30 MG TAB CR PO SCH (17:06)
[2024-06-19 20:00] VITALS: BP 137/75; PULSE 65; RESP 17; TEMP 98.2; O2SAT 97
[2024-06-19 21:00] VITALS: BP 137/75; PULSE 65; RESP 17; TEMP 98.2; O2SAT 97
[2024-06-20] VITALS (7 sets, daily range): BP systolic 145–174; BP diastolic 77–92; PULSE 59–72; RESP 17–18; TEMP 97.7–98.5; O2SAT 96–100
[2024-06-20] MEDS: Morphine 2mg Syringe 2 MG/ML SYR IV PRN (00:50)
[2024-06-20 05:36] LABS: BASOPHILS # (AUTO) 0.1 (0.0-0.1); BASOPHILS % 0.7 % (0.0-1.0); EOSINOPHILS # (AUTO) 0.4 (0.0-0.4); EOSINOPHILS % 5.9 % (0.0-6.0); HEMATOCRIT 31.5 % (38.2-49.6); HEMOGLOBIN 9.7 g/dL (14.0-18.0); LYMPHOCYTES # (AUTO) 1.2 (1.0-3.2); LYMPHOCYTES % 17.4 % (18.0-39.1); MEAN CORPUSCULAR HEMOGLOBIN 29.5 pg (28-32); MEAN CORPUSCULAR HGB CONC 30.8 g/dL (31-35); MEAN CORPUSCULAR VOLUME 95.7 fL (81-99); MONOCYTES # (AUTO) 0.5 (0.2-0.8); MONOCYTES % 7.8 % (4.4-11.3); NEUTROPHILS # (AUTO) 4.6 (2.1-6.9); NEUTROPHILS % 67.9 % (38.7-80.0); PLATELET COUNT 144 x10e3/uL (140-360); RED BLOOD COUNT 3.29 x10e6/uL (4.3-5.7); RED CELL DISTRIBUTION WIDTH 12.5 % (11.7-14.4); WHITE BLOOD COUNT 6.82 x10e3/uL (4.8-10.8)
[2024-06-20 06:02] LABS: ANION GAP 9.7 mmol/L (8-16); CALCIUM 8.5 mg/dL (8.4-10.2); CREATININE, SERUM 1.75 mg/dL (0.72-1.25); POTASSIUM 3.7 mmol/L (3.5-5.1)
[2024-06-20] MEDS ORDERED: VANCOMYCIN 1.25GM/250 ML (PEG) 250 ML IV SCH (10:00)
[2024-06-20] MEDS: CEFEPIME 2 GM in SODIUM CHLORIDE 0.9% 100 ML IV SCH (11:04)
[2024-06-20] MEDS: ONDANSETRON HCL INJ 2MG/ML 2ML 2 MG/ML VIAL IV PRN (11:05)
[2024-06-20] MEDS ORDERED: DICYCLOMINE HCL 20 MG TAB PO PRN (11:30)
[2024-06-20] MEDS: VANCOMYCIN 1.25GM/250 ML (PEG) 250 ML IV SCH (13:33)
[2024-06-20] MEDS: HYDRALAZINE HCL 25 MG TAB PO SCH (15:29)
[2024-06-21 00:09] VITALS: BP 156/85; PULSE 70; RESP 17; TEMP 97.8; O2SAT 96
[2024-06-21 04:00] VITALS: BP 139/82; PULSE 64; RESP 17; TEMP 98.3; O2SAT 97
[2024-06-21 05:04] LABS: HEMATOCRIT 30.5 % (38.2-49.6); HEMOGLOBIN 9.4 g/dL (14.0-18.0); MEAN CORPUSCULAR HEMOGLOBIN 29.9 pg (28-32); MEAN CORPUSCULAR HGB CONC 30.8 g/dL (31-35); MEAN CORPUSCULAR VOLUME 97.1 fL (81-99); PLATELET COUNT 130 x10e3/uL (140-360); RED BLOOD COUNT 3.14 x10e6/uL (4.3-5.7); RED CELL DISTRIBUTION WIDTH 12.9 % (11.7-14.4); WHITE BLOOD COUNT 6.11 x10e3/uL (4.8-10.8)
[2024-06-21 05:38] LABS: ALBUMIN 2.7 g/dL (3.5-5.0); ALBUMIN/GLOBULIN RATIO 0.9 (0.8-2.0); ALKALINE PHOSPHATASE 79 IU/L (40-150); BILIRUBIN,TOTAL 0.4 mg/dL (0.2-1.2); BLOOD UREA NITROGEN 15 mg/dL (7-26); BUN/CREATININE RATIO 9 (6-25); CALCIUM 8.1 mg/dL (8.4-10.2); CARBON DIOXIDE 22 mmol/L (22-29); CHLORIDE 113 mmol/L (98-107); CREATININE, SERUM 1.62 mg/dL (0.72-1.25); EST GLOMERULAR FILTRATION RATE 45 ML/MIN (>=60); GLUCOSE 97 mg/dL (74-118); SODIUM 143 mmol/L (136-145); TOTAL PROTEIN 5.7 g/dL (6.5-8.1)
[2024-06-21 05:42] LABS: ALANINE AMINOTRANSFERASE < 6 IU/L (0-55)
[2024-06-21 08:00] VITALS: BP 139/82; PULSE 64; RESP 17; TEMP 98.3; O2SAT 97
[2024-06-21 08:28] LABS: EOSINOPHILS % (MANUAL) 4 % (0-7); LYMPHOCYTES % (MANUAL) 14 % (19-48); MONOCYTES % (MANUAL) 6 % (3.4-9.0); NEUTROPHILS % (MANUAL) 76 % (40-74)
[2024-06-21 08:29] LABS: PLATELET ESTIMATE SLIGHTLY DECREASED; PLATELET MORPHOLOGY COMMENT NORMAL; RBC MORPHOLOGY COMMENT NORMAL
[2024-06-21 08:53] VITALS: BP 153/84; PULSE 65; RESP 17; TEMP 98.3; O2SAT 96
[2024-06-21] MEDS ORDERED: CIPRO250 MG PO (10:43)
[2024-06-21] MEDS ORDERED: DOXYCYCLINE HY100 MG PO (10:43)
[2024-06-21 12:03] VITALS: BP 155/84; PULSE 67; RESP 17; TEMP 97.6; O2SAT 98
[2024-06-21] MEDS ORDERED: ONDANSETRON HCL 4 MG ORAL DISINTEGRATING TAB PO PRN (12:15)
[2024-06-21 13:05] VITALS: BP 155/84
== END 2024-06-21 13:13 | disposition home or self-care (01) | DRG 638 ==
LOC: ER 15:20 → ERHOLD 18:48 → MED/SURG2 20:47
PROVIDERS: ADMIT Internal Medicine; ATTEND Internal Medicine
DX: E11.621 Type 2 diabetes mellitus with foot ulcer (principal); A52.16 Charcot's arthropathy (tabetic); L03.115 Cellulitis of right lower limb; L97.411 Non-pressure chronic ulcer of right heel and midfoot limited to breakdown of skin; I50.22 Chronic systolic (congestive) heart failure; N17.9 Acute kidney failure, unspecified; E11.51 Type 2 diabetes mellitus with diabetic peripheral angiopathy without gangrene; E11.42 Type 2 diabetes mellitus with diabetic polyneuropathy; Z95.820 Peripheral vascular angioplasty status with implants and grafts; Z79.4 Long term (current) use of insulin; S90.821A Blister (nonthermal), right foot, initial encounter; X58.XXXA Exposure to other specified factors, initial encounter; I11.0 Hypertensive heart disease with heart failure; E78.00 Pure hypercholesterolemia, unspecified; E89.0 Postprocedural hypothyroidism; N40.0 Benign prostatic hyperplasia without lower urinary tract symptoms; I25.10 Atherosclerotic heart disease of native coronary artery without angina pectoris; Z87.891 Personal history of nicotine dependence; Z95.5 Presence of coronary angioplasty implant and graft; Z89.431 Acquired absence of right foot; Z89.411 Acquired absence of right great toe; Z79.899 Other long term (current) drug therapy; Z79.02 Long term (current) use of antithrombotics/antiplatelets; Z79.82 Long term (current) use of aspirin
CPT/HCPCS: 36415; 71045; 80048; 80053; 82550; 82948; 83735; 84484; 85007; 85025; 85027; 85610; 85730; 86140; 87040; 87071; 87205; 93005; 99252; 99284; J0360; J0692; J2270; J2405; J2543; J7030; J7050; U0002